=== PATIENT | male | born 1990 | race Caucasian/White ===

== ENCOUNTER 2017-11-12 19:41 | Emergency (ER) | payer SELFPAY ==
[2017-11-12 19:47] VITALS: BP 140/79; PULSE 90; TEMP 98.5; BMI 28.0
[2017-11-12 20:33] LABS: BASO % 0.6 % (0-2.0); EOS % 5.2 % (0-4.5); HEMATOCRIT 43.8 % (35.4-49); HEMOGLOBIN 14.9 GM/dL (11.7-16.9); LYMPH % 17.7 % (8-40); MCH 29.5 pg (25.7-33.7); MEAN CELL VOLUME 86.7 fl (80-96); MEAN PLT VOLUME 10.5 fl (7.5-11.1); MONO % 8.5 % (3.8-10.2); PLATELET COUNT 202 K/MM3 (134-434); RBC 5.05 M/mm3 (4.00-5.60); RDW 12.6 % (11.9-15.9); WHITE BLOOD COUNT 6.8 K/mm3 (4.0-10.0)
[2017-11-12 20:41] LABS: URINE AMPHETAMINES NEGATIVE ng/ml (CUTOFF=500)
[2017-11-12 20:42] LABS: COCAINE, UR NEGATIVE ng/ml (CUTOFF=300); METHADONE, UR NEGATIVE ng/ml (CUTOFF=300); PHENCYCLIDINE,URINE NEGATIVE ng/ml (CUTOFF=25); URINE BARBITURATES NEGATIVE ng/ml (CUTOFF=200); URINE BENZODIAZEPINES POSITIVE ng/ml (CUTOFF=200)
[2017-11-12 20:43] LABS: OPIATES, URI POSITIVE ng/ml (CUTOFF=300)
[2017-11-12 20:59] LABS: ALBUMIN 4.1 g/dl (3.4-5.0); ANION GAP 8 (8-16); BLOOD UREA NITROGEN 10 mg/dL (7-18); CALCIUM 8.9 mg/dL (8.5-10.1); CHLORIDE 107 mmol/L (98-107); CO2 26 mmol/L (21-32); CREATININE 0.9 mg/dL (0.7-1.3); GLUCOSE,RANDOM 113 mg/dL (74-106); POTASSIUM 4.2 mmol/L (3.5-5.1); SGOT/AST 21 U/L (15-37); SGPT/ALT 54 U/L (12-78); SODIUM 141 mmol/L (136-145)
[2017-11-12 21:01] LABS: ALK PHOS 86 U/L (45-117); BILIRUBIN,TOTAL 0.6 mg/dL (0.2-1.0); TOT PROT 7.7 g/dl (6.4-8.2)
--- NOTE | 2017-11-12 21:01 | PDOC ---
History of Present Illness <GamaFelisahernan Taylor - Last Filed: 11/12/17 21:33> - General History Source: Patient Exam Limitations: No Limitations - History of Present Illness Initial Comments: 11/12/17 21:14 The patient is a 27 year old male with history of polysubstance abuse who presents to the ED requesting heroin detox. He states he snorts heroin. He last took heroin around 9 AM this morning. He denies any physical complaints on evaluation. No respiratory distress or difficulty breathing. Denies alcohol, cigarette, or marijuana abuse. <Meagan Brown - Last Filed: 11/12/17 21:38> - General Chief Complaint: Substance Abuse Stated Complaint: DETOX from Heroin Time Seen by Provider: 11/12/17 20:09 Past History - Past Medical History COPD: No - Suicide/Smoking/Psychosocial Hx Smoking History: Never smoked Information on smoking cessation initiated: No Hx Alcohol Use: No Drug/Substance Use Hx: No Substance Use Type: Alcohol, Heroin, Opiates <Felisa Malloy - Last Filed: 11/12/17 21:33> <Meagan Brown - Last Filed: 11/12/17 21:38> - Past Medical History Allergies/Adverse Reactions: Allergies Allergy/AdvReac Type Severity Reaction Status Date / Time No Known Allergies Allergy Verified 11/12/17 19:47 Review of Systems - Review of Systems Able to Perform ROS?: Yes Comments:: 11/12/17 21:36 GENERAL/CONSTITUTIONAL: No fever or chills. No weakness. HEAD, EYES, EARS, NOSE AND THROAT: No change in vision. No ear pain or discharge. No sore throat. CARDIOVASCULAR: No chest pain or shortness of breath. RESPIRATORY: No cough, wheezing, or hemoptysis. GASTROINTESTINAL: No nausea, vomiting, diarrhea or constipation. GENITOURINARY: No dysuria, frequency, or change in urination. MUSCULOSKELETAL: No joint or muscle swelling or pain. No neck or back pain. SKIN: No rash NEUROLOGIC: No headache, vertigo, loss of consciousness, or change in strength/ sensation. ENDOCRINE: No increased thirst. No abnormal weight change. HEMATOLOGIC/LYMPHATIC: No anemia, easy bleeding, or history of blood clots. ALLERGIC/IMMUNOLOGIC: No hives or skin allergy. <Meagan Brown - Last Filed: 11/12/17 21:38> *Physical Exam - Vital Signs Last Vital Signs Temp Pulse Resp BP Pulse Ox 98.5 F 90 18 140/79 99 11/12/17 19:44 11/12/17 19:44 11/12/17 19:44 11/12/17 19:44 11/12/17 19:44 <Felisa Malloy - Last Filed: 11/12/17 21:33> - Vital Signs Last Vital Signs Temp Pulse Resp BP Pulse Ox 98.5 F 90 18 140/79 99 11/12/17 19:44 11/12/17 19:44 11/12/17 19:44 11/12/17 19:44 11/12/17 19:44 - Physical Exam Comments: 11/12/17 21:36 GENERAL: Awake, alert, and fully oriented, in no acute distress. HEAD: No signs of trauma EYES: PERRLA, EOMI, sclera anicteric, conjunctiva clear ENT: Auricles normal inspection, nares patent. Moist mucosa NECK: Normal ROM, supple, no JVD, or masses LUNGS: Breath sounds equal, clear to auscultation bilaterally. No wheezes, and no crackles HEART: +Mild tachycardia, normal S1 and S2, no murmurs, rubs or gallops ABDOMEN: Soft, nontender, normoactive bowel sounds. No guarding, no rebound. No masses EXTREMITIES: Normal range of motion, no edema. No clubbing or cyanosis. No cords, erythema, or tenderness NEUROLOGICAL: Alert and oriented x 3. Moves all extremities. Face is symmetric. SKIN: Warm, Dry, normal turgor, no rashes or lesions noted. <Meagan Brown - Last Filed: 11/12/17 21:38> ED Treatment Course - LABORATORY CBC & Chemistry Diagram: 11/12/17 20:22 11/12/17 20:22 - ADDITIONAL ORDERS Additional order review: Laboratory Results 11/12/17 20:22 Opiates Screen Positive Methadone Screen Negative Barbiturate Screen Negative Phencyclidine Screen Negative Ur Amphetamines Screen Negative MDMA (Ecstasy) Screen Negative Benzodiazepines Screen Positive Cocaine Screen Negative U Marijuana (THC) Screen Negative 11/12/17 20:22 RBC 5.05 MCV 86.7 MCHC 34.0 RDW 12.6 MPV 10.5 Neutrophils % 68.0 Lymphocytes % 17.7 Monocytes % 8.5 Eosinophils % 5.2 H Basophils % 0.6 <Felisa Malloy - Last Filed: 11/12/17 21:33> - LABORATORY CBC & Chemistry Diagram: 11/12/17 20:22 11/12/17 20:22 - ADDITIONAL ORDERS Additional order review: Laboratory Results 11/12/17 11/12/17 20:22 20:22 Sodium 141 Potassium 4.2 Chloride 107 Carbon Dioxide 26 Anion Gap 8 BUN 10 Creatinine 0.9 Creat Clearance w eGFR > 60 Random Glucose 113 H Calcium 8.9 Total Bilirubin 0.6 AST 21 ALT 54 Alkaline Phosphatase 86 Total Protein 7.7 Albumin 4.1 Opiates Screen Positive Methadone Screen Negative Barbiturate Screen Negative Phencyclidine Screen Negative Ur Amphetamines Screen Negative MDMA (Ecstasy) Screen Negative Benzodiazepines Screen Positive Cocaine Screen Negative U Marijuana (THC) Screen Negative 11/12/17 20:22 RBC 5.05 MCV 86.7 MCHC 34.0 RDW 12.6 MPV 10.5 Neutrophils % 68.0 Lymphocytes % 17.7 Monocytes % 8.5 Eosinophils % 5.2 H Basophils % 0.6 <Meagan Brown - Last Filed: 11/12/17 21:38> Medical Decision Making - Medical Decision Making 11/12/17 21:31 27 yo male has been snorting heroin for 5 years and would like to be in a detox program -he is not in any respiratory distress,he is alert and conversant -lungs are clear -i called [id number] and spoke with TRACK SERVICE PERSON Janna and there were no beds tonight -pt informed to go to [address] [place] [address] at 8 am and bring his insurance information and identification 11/12/17 21:33 <Felisa Malloy - Last Filed: 11/12/17 21:33> *DC/Admit/Observation/Transfer <Felisa Malloy - Last Filed: 11/12/17 21:33> - Attestations Scribe Attestion: 11/12/17 21:38 Documentation prepared by Meagan Brown, acting as certified medical dosimetrist for Felisa Malloy MD. <Meagan Brown - Last Filed: 11/12/17 21:38> Diagnosis at time of Disposition: Desire for detoxification - Discharge Dispostion Disposition: HOME Condition at time of disposition: Stable - Patient Instructions Printed Discharge Instructions: Chemical Dependency (Narcotic) (Alternative Therapy), DI for Opioid Addiction Additional Instructions: please go to [facility] at [address] [place] [address] Go to intake at 8 am Please bring identification and insurance information
== END 2017-11-12 21:43 | disposition home or self-care (01) ==
LOC: JER 19:41
DX: F11.20 Opioid dependence, uncomplicated (principal)
CPT/HCPCS: 36415; 80053; 80307; 85025; 99281-25

== ENCOUNTER 2017-11-13 08:29 | Inpatient (IN) | payer OTHER ==
[2017-11-13 09:45] VITALS: BMI 26.4
--- NOTE | 2017-11-13 12:42 | HP ---
COWS - Scale Resting Pulse: 0= [place] 80 or Below Sweatin=Flushed/Facial Moisture Restless Observation: 3= Extraneous Movement Pupil Size: 2= Moderately Dilated Bone or Joint Aches: 2= Severe Diffuse Aches Runny Nose/ Eye Tearin= Runny Nose/Eyes GI Upset > 30mins: 3= Vomiting/Diarrhea Tremor Observation: 2= Slight Tremor Visible Yawning Observation: 2= >3x During Session Anxiety or Irritability: 2=Irritable/Anxious Goose Flesh Skin: 0=Smooth Skin COWS Score: 20 Admission ROS S - HPI Chief Complaint: I NEED HELP TO STOP USING HEROIN Allergies/Adverse Reactions: Allergies Allergy/AdvReac Type Severity Reaction Status Date / Time No Known Allergies Allergy Verified 11/13/17 09:44 History of Present Illness: THIS 27 YEARS OLD MALE WITH HEROIN DEPENDENCE,WITHDRAWAL SYMPTOM,SEEKING DETOX, NEVER BEEN I DETOX BEFORE DENIED MEDICAL PROBLEM FX OF LEFT WRIST AT AGE 22 TORSION OF TESTES RIGHT AT AT AGE OF 21 INSOMNIA Exam Limitations: No Limitations - Ebola screening Have you traveled outside of the country in the last 21 days: No (N) Have you had contact with anyone from an Ebola affected area: No Have you been sick,other than usual withdrawal symptoms: No Do you have a fever: No - Review of Systems Constitutional: Chills, Diaphoresis, Malaise, Night Sweats, Changes in sleep EENT: reports: Tearing, Nose Congestion Respiratory: reports: No Symptoms reported Cardiac: reports: No Symptoms Reported GI: reports: Diarrhea, Nausea, Vomiting, Abdominal cramping : reports: No Symptoms Reported Musculoskeletal: reports: No Symptoms Reported, Back Pain, Joint Pain, Muscle Pain Integumentary: reports: Dryness Neuro: reports: Headache, Tremors Endocrine: reports: No Symptoms Reported Hematology: reports: No Symptoms Reported Psychiatric: reports: No Sypmtoms Reported, Judgement Intact, Mood/Affect Appropiate, Orientated x3 (INSOMNIA) Patient History - Patient Medical History Hx Anemia: No Hx Asthma: No Hx Chronic Obstructive Pulmonary Disease (COPD): No Hx Cancer: No Hx Cardiac Disorders: No Hx Congestive Heart Failure: No Hx Hypertension: No Hx Hypercholesterolemia: No Hx Pacemaker: No HX Cerebrovascular Accident: No Hx Seizures: No Hx Dementia: No Hx Diabetes: No Hx Gastrointestinal Disorders: No Hx Liver Disease: No Hx Genitourinary Disorders: Yes (TORSION O FTESTES RIGHT AT AGE OF 21) Hx Sexually Transmitted Disorders: No Hx Renal Disease (ESRD): No Hx Thyroid Disease: No Hx Human Immunodeficiency Virus (HIV): No (NEVER BEEN TESTED) Hx Hepatitis C: No Hx Depression: Yes (self dx) Hx Suicide Attempt: No Hx Bipolar Disorder: No Hx Schizophrenia: No Other Medical History: INSOMNIA,NO SUICIDAL,NO HOMICIDAL - Patient Surgical History Past Surgical History: No Hx Neurologic Surgery: No Hx Cataract Extraction: No Hx Cardiac Surgery: No Hx Lung Surgery: No Hx Breast Surgery: No Hx Breast Biopsy: No Hx Abdominal Surgery: No Hx Appendectomy: No Hx Cholecystectomy: No Hx Genitourinary Surgery: Yes (TORSION OF TESTES RIGHT AT AGE OF 21) Hx Section: No Hx Orthopedic Surgery: Yes (Fx left wrist sx done 2010) Anesthesia Reaction: No - PPD History Previous Implant?: Yes Documented Results: Negative w/proof Implanted On Prior R Admission?: No PPD to be Administered?: Yes - Smoking Cessation Smoking history: Never smoked Hx Chewing Tobacco Use: No - Substance & Tx. History Hx Alcohol Use: No Hx Substance Use: Yes Substance Use Type: Heroin Hx Substance Use Treatment: No - Substances Abused Heroin Route: Inhalation Frequency: Daily Amount used: 10 BAGS Age of first use: 22 Date of Last Use: 11/12/17 Family Disease History - Family Disease History Family History: Denies Admission Physical Exam [facility] - Vital Signs Vital Signs: Vital Signs - 24 hr 11/13/17 09:43 Temperature 97.5 F L Pulse Rate 78 Respiratory 20 Rate Blood Pressure 151/76 - Physical General Appearance: Yes: Moderate Distress, Tremorous, Irritable, Sweating, Anxious HEENTM: Yes: Normal ENT Inspection, AUDREY, Pharynx Normal Respiratory: Yes: Lungs Clear, Normal Breath Sounds, No Respiratory Distress Neck: Yes: Within Normal Limits, Supple, Trachea in good position Breast: Yes: Within Normal Limits Cardiology: Yes: Within Normal Limits, Regular Rhythm, Regular Rate, S1, S2 Abdominal: Yes: Within Normal Limits, Normal Bowel Sounds, Non Tender, Soft Genitourinary: Yes: Within Normal Limits Back: Yes: Within Normal Limits, Normal Inspection, Muscle Spasm Musculoskeletal: Yes: full range of Motion, Back pain, Joint Stiffness, Muscle Pain Extremities: Yes: Normal Inspection, Normal Range of Motion, Tremors Neurological: Yes: port drier II-XII NML intact, Alert, Motor Strength 5/5, Normal Mood /Affect, Normal Response Integumentary: Yes: Dry Lymphatic: Yes: Within Normal Limits - Diagnostic (1) Opioid dependence with withdrawal Current Visit: Yes Status: Acute (2) Insomnia Current Visit: Yes Status: Acute (3) History of torsion of testis Current Visit: Yes Status: Acute Cleared for Admission [facility] - Detox or Rehab [facility] Level of Care: Medically Managed Detox Regimen/Protocol: Methadone [facility] Breath Alcohol Content Breath Alcohol Content: 0 Urine Drug Screen - Results Drug Screen Negative: No Urine Drug Screen Results: OPI-Opiates, BZO-Benzodiazepines, OXY-Oxycodone
[2017-11-13] MEDS ORDERED: P-EPHED 60MG/TRIPROLIDI 2.5MG TABLET PO PRN (12:58)
[2017-11-13] MEDS ORDERED: ACETAMINOPHEN 325 MG TABLET (FP) PO PRN (12:58)
[2017-11-13] MEDS ORDERED: MENTHOL/PHENOL 1 EACH UD MM PRN (12:58)
[2017-11-13] MEDS ORDERED: LOPERAMIDE HCL 2 MG CAPSULE PO PRN (12:58)
[2017-11-13] MEDS ORDERED: MAG HYDROX/AL HYDROX/SIMETH 30 ML UNIT-DOSE CUP PO PRN (12:58)
[2017-11-13] MEDS ORDERED: MAGNESIUM CITRATE 300 ML BOTTLE PO PRN (12:58)
[2017-11-13] MEDS ORDERED: guaiFENesin/D-METHORPHAN HB 10 ML UNIT-DOSE CUPS PO PRN (12:58)
[2017-11-13] MEDS ORDERED: MAGNESIUM HYDROX 2400MG/30ML ORAL SUSPENSION 30 ML CUP PO PRN (12:58)
[2017-11-13] MEDS ORDERED: METHADONE HCL 10 MG TABLET (FOR DETOX USE ONLY) PO ONE ×2 (13:45→23:00)
[2017-11-13] MEDS: diazePAM 5 MG TABLET PO PRN ×2 (14:08→22:12)
[2017-11-13] MEDS: THIAMINE HCL 100 MG TABLET (FP) PO SCH (22:12)
[2017-11-13] MEDS: cloNIDine HCL 0.1 MG TABLET PO SCH (22:12)
[2017-11-13] MEDS: CYCLOBENZAPRINE HCL 10 MG TABLET (FP) PO PRN (22:12)
[2017-11-14] MEDS ORDERED: METHADONE HCL 10 MG TABLET (FOR DETOX USE ONLY) PO ONE (10:00)
[2017-11-14 10:13] LABS: URINE APPEARANCE CLOUDY; URINE BILIRUBIN NEGATIVE (NEGATIVE); URINE BLOOD NEGATIVE (NEGATIVE); URINE COLOR YELLOW; URINE GLUCOSE (UA) NEGATIVE (NEGATIVE); URINE KETONE NEGATIVE (NEGATIVE); URINE LEUK ESTERASE NEGATIVE (NEGATIVE); URINE NITRITE NEGATIVE (NEGATIVE); URINE PROTEIN NEGATIVE (NEGATIVE)
[2017-11-14] MEDS: PRENATAL VITAMINS W/ FOLIC ACID TABLET (FP) PO SCH (10:16)
[2017-11-14] MEDS: diazePAM 5 MG TABLET PO PRN ×3 (10:16→22:41)
[2017-11-14] MEDS: CYCLOBENZAPRINE HCL 10 MG TABLET (FP) PO PRN ×2 (10:16→22:41)
[2017-11-14] MEDS: cloNIDine HCL 0.1 MG TABLET PO SCH ×2 (10:16→22:41)
[2017-11-14 10:23] LABS: CHLORIDE 106 mmol/L (98-107); HEMATOCRIT 41.7 % (35.4-49); MCH 29.3 pg (25.7-33.7); MCHC 33.6 g/dl (32.0-35.9); MEAN CELL VOLUME 87.3 fl (80-96); MEAN PLT VOLUME 10.8 fl (7.5-11.1); PLATELET COUNT 194 K/MM3 (134-434); POTASSIUM 4.1 mmol/L (3.5-5.1); RBC 4.78 M/mm3 (4.00-5.60); RDW 12.6 % (11.9-15.9); SODIUM 141 mmol/L (136-145)
--- NOTE | 2017-11-14 10:26 | CONSULT ---
[facility] Psychiatric Consult - Data Date of interview: 11/14/17 Admission source: [facility] Identifying data: Pt. is a 27 year old single male, without kids, unemployed, and currently living with his parent. This is patient's first admission at [facility]. Pt. admitted for opiate dependence. Substance Abuse History: Smoking Cessation. Smoking history: Never smoked. Hx Chewing Tobacco Use: No. - Substance & Tx. History. Hx Alcohol Use: No. Hx Substance Use: Yes. Substance Use Type: Heroin. Hx Substance Use Treatment: No. - Substances Abused. Heroin. Route: Inhalation. Frequency: Daily. Amount used: 10 BAGS. Age of first use: 22. Date of Last Use: 11/12/17 Medical History: Fracture left wrist surgery in 2010. TORSION OF TESTES RIGHT AT AGE OF 21 Psychiatric History: Pt. denies h/o psychiatric hospitalization, suicide attempts, and outpatient care. Physical/Sexual Abuse/Trauma History: Denies. Mental Status Exam - Mental Status Exam Alert and Oriented to: Time, Place, Person Cognitive Function: Good Patient Appearance: Well Groomed Mood: Euthymic Affect: Appropriate Patient Behavior: Appropriate, Cooperative Speech Pattern: Appropriate Voice Loudness: Normal Thought Process: Goal Oriented Thought Disorder: Not Present Hallucinations: Denies Suicidal Ideation: Denies Homicidal Ideation: Denies Insight/Judgement: Poor Sleep: Fair Appetite: Fair Muscle strength/Tone: Normal Gait/Station: Normal Psychiatric Findings - Problem List ([place] 1, 2,3) (1) Opioid dependence with withdrawal Current Visit: Yes Status: Acute - Initial Treatment Plan Initial Treatment Plan: Psychoeducation provided. Detoxification in progress. Observation.
[2017-11-14 10:31] LABS: ALBUMIN 3.6 g/dl (3.4-5.0); ALK PHOS 73 U/L (45-117); ANION GAP 8 (8-16); BILIRUBIN,TOTAL 0.6 mg/dL (0.2-1.0); BLOOD UREA NITROGEN 9 mg/dL (7-18); CALCIUM 8.7 mg/dL (8.5-10.1); CO2 27 mmol/L (21-32); CREATININE 0.7 mg/dL (0.7-1.3); GLUCOSE,RANDOM 95 mg/dL (74-106); SGOT/AST 10 U/L (15-37); SGPT/ALT 43 U/L (12-78); TOT PROT 7.1 g/dl (6.4-8.2)
--- NOTE | 2017-11-14 11:08 | PN ---
S COWS - Scale Resting Pulse: 1= [place] 81-100 Sweatin= Chills/Flushing Restless Observation: 3= Extraneous Movement Pupil Size: 1= Pupils >than Normal Bone or Joint Aches: 2= Severe Diffuse Aches Runny Nose/ Eye Tearin= Runny Nose/Eyes GI Upset > 30mins: 3= Vomiting/Diarrhea Tremor Observation of Outstretched Hands: 2= Slight Tremor Visible Yawning Observation: 1= 1-2x During Session Anxiety or Irritability: 2=Irritable/Anxious Goose Flesh Skin: 0=Smooth Skin COWS Score: 18 S Progress Note (SOAP) Subjective: ALERT,IRRITABLE,ANXIOUS,INTERRUPTED SLEEP,PAIN IN THE BODY AND BACK Objective: 11/14/17 11:04 Vital Signs Temperature 97.7 F 11/14/17 06:00 Pulse Rate 66 11/14/17 06:00 Respiratory Rate 16 11/14/17 06:00 Blood Pressure 105/56 11/14/17 06:00 O2 Sat by Pulse Oximetry (%) EKG NSR WITH SINUS ARRHYTHMIA NORMAL ECG Laboratory Last Values WBC 6.0 K/mm3 (4.0-10.0) 11/14/17 07:00 RBC 4.78 M/mm3 (4.00-5.60) 11/14/17 07:00 Hgb 14.0 GM/dL (11.7-16.9) 11/14/17 07:00 Hct 41.7 % (35.4-49) 11/14/17 07:00 MCV 87.3 fl (80-96) 11/14/17 07:00 MCH 29.3 pg (25.7-33.7) 11/14/17 07:00 MCHC 33.6 g/dl (32.0-35.9) 11/14/17 07:00 RDW 12.6 % (11.9-15.9) 11/14/17 07:00 Plt Count 194 K/MM3 (134-434) 11/14/17 07:00 MPV 10.8 fl (7.5-11.1) 11/14/17 07:00 Sodium 141 mmol/L (136-145) 11/14/17 07:00 Potassium 4.1 mmol/L (3.5-5.1) 11/14/17 07:00 Chloride 106 mmol/L (98-107) 11/14/17 07:00 Carbon Dioxide 27 mmol/L (21-32) 11/14/17 07:00 Anion Gap 8 (8-16) 11/14/17 07:00 BUN 9 mg/dL (7-18) 11/14/17 07:00 Creatinine 0.7 mg/dL (0.7-1.3) D 11/14/17 07:00 Creat Clearance w eGFR > 60 (>60) 11/14/17 07:00 Random Glucose 95 mg/dL (74-106) 11/14/17 07:00 Calcium 8.7 mg/dL (8.5-10.1) 11/14/17 07:00 Total Bilirubin 0.6 mg/dL (0.2-1.0) 11/14/17 07:00 AST 10 U/L (15-37) L D 11/14/17 07:00 ALT 43 U/L (12-78) D 11/14/17 07:00 Alkaline Phosphatase 73 U/L (45-117) 11/14/17 07:00 Total Protein 7.1 g/dl (6.4-8.2) 11/14/17 07:00 Albumin 3.6 g/dl (3.4-5.0) 11/14/17 07:00 Urine Color Yellow 11/14/17 08:00 Urine Appearance Cloudy 11/14/17 08:00 Urine pH 7.0 (5.0-8.0) 11/14/17 08:00 Ur Specific [place] 1.020 (1.001-1.035) 11/14/17 08:00 Urine Protein Negative (NEGATIVE) 11/14/17 08:00 Urine Glucose (UA) Negative (NEGATIVE) 11/14/17 08:00 Urine Ketones Negative (NEGATIVE) 11/14/17 08:00 Urine Blood Negative (NEGATIVE) 11/14/17 08:00 Urine Nitrite Negative (NEGATIVE) 11/14/17 08:00 Urine Bilirubin Negative (NEGATIVE) 11/14/17 08:00 Urine Urobilinogen 2.0 mg/dL (0.2-1.0) 11/14/17 08:00 Ur Leukocyte Esterase Negative (NEGATIVE) 11/14/17 08:00 11/14/17 11:07 RPR PENDING Assessment: 11/14/17 11:07 WITHDRAWAL SYMPTOM Plan: CONTINUE DETOX
[2017-11-14] MEDS ORDERED: FLU VACCINE QUAD 60 MCG/0.5 ML (MDV 17-18) IM ONE (12:00)
--- NOTE | 2017-11-14 12:06 | EKG ---
Test Reason : Blood Pressure : / mmHG Vent. Rate : 085 BPM Atrial Rate : 085 BPM P-R Int : 150 ms QRS Dur : 094 ms QT Int : 380 ms P-R-T Axes : 063 -17 023 degrees QTc Int : 452 ms NORMAL SINUS RHYTHM WITH SINUS ARRHYTHMIA NORMAL ECG NO PREVIOUS ECGS AVAILABLE Confirmed by MD Johnny, Senthil ([id number]) on 11/14/2017 12:05:58 PM Referred By: Confirmed By:Senthil Turner MD
[2017-11-14] MEDS: THIAMINE HCL 100 MG TABLET (FP) PO SCH (22:41)
[2017-11-15] MEDS ORDERED: METHADONE HCL 5 MG TABLET (FOR DETOX USE ONLY) PO ONE (10:00)
--- NOTE | 2017-11-15 10:39 | PN ---
[facility] COWS - Scale Resting Pulse: 0= [place] 80 or Below Sweatin= Chills/Flushing Restless Observation: 3= Extraneous Movement Pupil Size: 1= Pupils >than Normal Bone or Joint Aches: 2= Severe Diffuse Aches Runny Nose/ Eye Tearin= Runny Nose/Eyes GI Upset > 30mins: 3= Vomiting/Diarrhea Tremor Observation of Outstretched Hands: 2= Slight Tremor Visible Yawning Observation: 1= 1-2x During Session Anxiety or Irritability: 2=Irritable/Anxious Goose Flesh Skin: 0=Smooth Skin COWS Score: 17 S Progress Note (SOAP) Subjective: ALERT,IRRITABLE,ANXIOUS,INTERRUPTED SLEEP,TREMOR,PAIN IN THE BODY AND BACK Objective: 11/15/17 10:37 Vital Signs Temperature 96.8 F L 11/15/17 06:23 Pulse Rate 60 11/15/17 06:23 Respiratory Rate 18 11/15/17 06:23 Blood Pressure 105/67 11/15/17 06:23 O2 Sat by Pulse Oximetry (%) Laboratory Last Values WBC 6.0 K/mm3 (4.0-10.0) 11/14/17 07:00 RBC 4.78 M/mm3 (4.00-5.60) 11/14/17 07:00 Hgb 14.0 GM/dL (11.7-16.9) 11/14/17 07:00 Hct 41.7 % (35.4-49) 11/14/17 07:00 MCV 87.3 fl (80-96) 11/14/17 07:00 MCH 29.3 pg (25.7-33.7) 11/14/17 07:00 MCHC 33.6 g/dl (32.0-35.9) 11/14/17 07:00 RDW 12.6 % (11.9-15.9) 11/14/17 07:00 Plt Count 194 K/MM3 (134-434) 11/14/17 07:00 MPV 10.8 fl (7.5-11.1) 11/14/17 07:00 Sodium 141 mmol/L (136-145) 11/14/17 07:00 Potassium 4.1 mmol/L (3.5-5.1) 11/14/17 07:00 Chloride 106 mmol/L (98-107) 11/14/17 07:00 Carbon Dioxide 27 mmol/L (21-32) 11/14/17 07:00 Anion Gap 8 (8-16) 11/14/17 07:00 BUN 9 mg/dL (7-18) 11/14/17 07:00 Creatinine 0.7 mg/dL (0.7-1.3) D 11/14/17 07:00 Creat Clearance w eGFR > 60 (>60) 11/14/17 07:00 Random Glucose 95 mg/dL (74-106) 11/14/17 07:00 Calcium 8.7 mg/dL (8.5-10.1) 11/14/17 07:00 Total Bilirubin 0.6 mg/dL (0.2-1.0) 11/14/17 07:00 AST 10 U/L (15-37) L D 11/14/17 07:00 ALT 43 U/L (12-78) D 11/14/17 07:00 Alkaline Phosphatase 73 U/L (45-117) 11/14/17 07:00 Total Protein 7.1 g/dl (6.4-8.2) 11/14/17 07:00 Albumin 3.6 g/dl (3.4-5.0) 11/14/17 07:00 Urine Color Yellow 11/14/17 08:00 Urine Appearance Cloudy 11/14/17 08:00 Urine pH 7.0 (5.0-8.0) 11/14/17 08:00 Ur Specific [place] 1.020 (1.001-1.035) 11/14/17 08:00 Urine Protein Negative (NEGATIVE) 11/14/17 08:00 Urine Glucose (UA) Negative (NEGATIVE) 11/14/17 08:00 Urine Ketones Negative (NEGATIVE) 11/14/17 08:00 Urine Blood Negative (NEGATIVE) 11/14/17 08:00 Urine Nitrite Negative (NEGATIVE) 11/14/17 08:00 Urine Bilirubin Negative (NEGATIVE) 11/14/17 08:00 Urine Urobilinogen 2.0 mg/dL (0.2-1.0) 11/14/17 08:00 Ur Leukocyte Esterase Negative (NEGATIVE) 11/14/17 08:00 RPR Titer Nonreactive (NONREACTIVE) 11/14/17 07:00 Assessment: 03/07/18 10:38 WITHDRAWAL SYMPTOM Plan: CONTINUE DETOX
[2017-11-15] MEDS: PRENATAL VITAMINS W/ FOLIC ACID TABLET (FP) PO SCH (10:43)
[2017-11-15] MEDS: CYCLOBENZAPRINE HCL 10 MG TABLET (FP) PO PRN (10:44)
[2017-11-15] MEDS: cloNIDine HCL 0.1 MG TABLET PO SCH ×2 (10:44→22:08)
[2017-11-15] MEDS: diazePAM 5 MG TABLET PO PRN ×2 (15:01→22:08)
[2017-11-15] MEDS: THIAMINE HCL 100 MG TABLET (FP) PO SCH (22:08)
[2017-11-16] MEDS: cloNIDine HCL 0.1 MG TABLET PO SCH ×2 (09:59→22:07)
[2017-11-16] MEDS: PRENATAL VITAMINS W/ FOLIC ACID TABLET (FP) PO SCH (09:59)
[2017-11-16] MEDS: CYCLOBENZAPRINE HCL 10 MG TABLET (FP) PO PRN (09:59)
[2017-11-16] MEDS: diazePAM 5 MG TABLET PO PRN (09:59)
[2017-11-16] MEDS ORDERED: METHADONE HCL 5 MG TABLET (FOR DETOX USE ONLY) PO ONE (10:00)
[2017-11-16] MEDS: IBUPROFEN 400 MG TABLET (FP) PO PRN ×2 (10:01→22:07)
--- NOTE | 2017-11-16 10:52 | PN ---
S Progress Note (SOAP) Subjective: ALERT,IRRITABLE,ANXIOUS,INTERRUPTED SLEEP, Objective: 11/16/17 10:51 Vital Signs Temperature 97.5 F L 11/16/17 06:19 Pulse Rate 49 L 11/16/17 06:19 Respiratory Rate 18 11/16/17 06:19 Blood Pressure 106/58 11/16/17 06:19 O2 Sat by Pulse Oximetry (%) Assessment: 11/16/17 10:52 WITHDRAWAL SYMPTOM Plan: CONTINUE DETOX
[2017-11-16] MEDS: THIAMINE HCL 100 MG TABLET (FP) PO SCH (22:07)
[2017-11-17] MEDS: hydrOXYzine PAMOATE 50 MG CAPSULE (FP) PO PRN ×2 (03:56→21:53)
[2017-11-17] MEDS ORDERED: METHADONE HCL 10 MG TABLET (FOR DETOX USE ONLY) PO ONE (10:00)
--- NOTE | 2017-11-17 10:04 | PN ---
[facility] Progress Note (SOAP) Subjective: ALERT,IRRITABLE,ANXIOUS,INTERRUPTED SLEEP,PAIN IN THE BODY Objective: 11/17/17 10:03 Vital Signs Temperature 97.7 F 11/17/17 09:34 Pulse Rate 83 11/17/17 09:34 Respiratory Rate 18 11/17/17 09:34 Blood Pressure 114/68 11/17/17 09:34 O2 Sat by Pulse Oximetry (%) Assessment: 11/17/17 10:03 WITHDRAWAL SYMPTOM Plan: CONTINUE DETOX
[2017-11-17] MEDS: PRENATAL VITAMINS W/ FOLIC ACID TABLET (FP) PO SCH (10:42)
[2017-11-17] MEDS: cloNIDine HCL 0.1 MG TABLET PO SCH ×2 (10:42→21:53)
[2017-11-17] MEDS: THIAMINE HCL 100 MG TABLET (FP) PO SCH (21:53)
[2017-11-17] MEDS: CYCLOBENZAPRINE HCL 10 MG TABLET (FP) PO PRN (21:53)
[2017-11-18] MEDS ORDERED: METHADONE HCL 5 MG TABLET (FOR DETOX USE ONLY) PO ONE (06:00)
[2017-11-18 06:29] VITALS: BP 104/58; PULSE 58; TEMP 97.2
[2017-11-18] MEDS: PRENATAL VITAMINS W/ FOLIC ACID TABLET (FP) PO SCH (09:03)
[2017-11-18] MEDS: cloNIDine HCL 0.1 MG TABLET PO SCH (09:03)
--- NOTE | 2017-11-18 14:22 | PN ---
S Progress Note (SOAP) Subjective: Denies complaints Objective: 11/18/17 14:20 A & O x3 steady on feet No acute distress Vital Signs Temperature 97.2 F L 11/18/17 06:00 Pulse Rate 58 L 11/18/17 06:00 Respiratory Rate 18 11/18/17 06:00 Blood Pressure 104/58 11/18/17 06:00 O2 Sat by Pulse Oximetry (%) Assessment: 11/18/17 14:2 Plan: for d/c
--- NOTE | 2017-11-18 14:23 | DS ---
[facility] Detox Discharge Summary Admission Date: 11/13/17 Discharge Date: 11/18/17 - History Additional Comments: pt states mom was on way to take him home Intends to start O/P aftercare rehab but will confer with famiy when get home Denies any medical hx nor need for prescription refills Pertinent Past History: hx of testicular torsion - Physical Exam Results Vital Signs: Vital Signs Temperature 97.2 F L 11/18/17 06:00 Pulse Rate 58 L 11/18/17 06:00 Respiratory Rate 18 11/18/17 06:00 Blood Pressure 104/58 11/18/17 06:00 O2 Sat by Pulse Oximetry (%) Pertinent Admission Physical Exam Findings: withdrawal sx - Treatment Hospital Course: Detox Protocol Followed, Detoxed Safely, Responded well, Discharged Condition Good Patient has Accepted a Rehab Referral to: will do O/P aftercare - Medication Discharge Medications: Ambulatory Orders NK [No Known Home Medication] 11/13/17 - Diagnosis (1) Opioid dependence with withdrawal Status: Acute (2) History of torsion of testis Status: Acute (3) Insomnia Status: Acute - AMA Did Patient Leave Against Medical Advice: No
== END 2017-11-18 09:11 | disposition home or self-care (01) | DRG 773 ==
LOC: YASAS 08:29 → Y6N 12:31
PROVIDERS: ADMIT Internal Medicine; ATTEND Internal Medicine
PROC: HZ2ZZZZ Detoxification Services for Substance Abuse Treatment (ICD-10-PCS; principal; 2017-11-13)
DX: F11.23 Opioid dependence with withdrawal (principal); G47.00 Insomnia, unspecified; I49.9 Cardiac arrhythmia, unspecified
CPT/HCPCS: 36415; 80053; 81003; 85027; 86593; 90688; 93005; 93010; J0735